=== PATIENT | female | born 1970 | race Caucasian/White ===

== ENCOUNTER 2018-02-23 14:29 | Outpatient (CLI) | payer OTHER ==
--- NOTE | 2018-02-23 16:27 | RAD ---
CERVICAL SPINE RADIOGRAPHS FOUR VIEWS: Date: 02-23-18 Provided Clinical History: Stiff and painful neck. Comparison: 03-01-14 FINDINGS: There is reversal of the normal cervical lordosis. Cervical alignment appears otherwise normal. Disc space narrowing and endplate degenerative change at C5-6. Intervertebral disc space heights appear ot herwise preserved. Vertebral body heights appear preserved. No prevertebral soft tissue swelling is a pparent. The visualized lung apices appear clear. IMPRESSION: Mid cervical degenerative change. POS: LINH
--- NOTE | 2018-02-23 16:27 | RAD ---
LUMBAR SPINE RADIOGRAPHS 3 VIEWS: DATE: 02/23/2018. PROVIDED CLINICAL HISTORY: Mid to low back pain. FINDINGS: No comparisons. Five [id number] lumbar-type vertebral bodies are present. Lumbar alignment swati ears normal. Disk space narrowing and end plate degenerative change above the lumbosacral junction. Intervertebral disk space heights appear otherwise preserved. IUD overlies the pelvis. Calcificati ons overlie the expected location of the left kidney. IMPRESSION: 1. Degenerative change at the lumbosacral junction. 2. Probable left nephrolithiasis. POS: LINH
== END 2018-02-23 14:30 | disposition home or self-care (01) ==
LOC: SCSRAD 14:29
PROVIDERS: ATTEND Family Medicine
DX: M54.5 Low back pain (principal); M54.2 Cervicalgia; V89.2XXA Person injured in unspecified motor-vehicle accident, traffic, initial encounter; M47.897 Other spondylosis, lumbosacral region; M47.892 Other spondylosis, cervical region
CPT/HCPCS: 72040; 72100

== ENCOUNTER 2018-05-31 08:30 | Outpatient (CLI) | payer OTHER ==
--- NOTE | 2018-05-31 17:48 | MMO ---
BILATERAL DIGITAL SCREENING MAMMOGRAM: Date: 05/31/18 HISTORY: Patient with history of biopsy 5 years ago. FINDINGS: Bilateral craniocaudal and oblique mediolateral digital screening mammograms obtained. Images were also performed using computer-aided detection. Images demonstrate surgical clips seen in the upper outer quadrant of the left breast. No newly devel oped masses or lesions seen. Mammographic appearance is stable with no definite evidence of pathology noted. IMPRESSION: BIRADS 1: Negative exam POS: LINH
== END 2018-05-31 08:31 | disposition home or self-care (01) ==
LOC: SCSMAMMO 08:30
PROVIDERS: ATTEND Obstetrics & Gynecology
DX: Z12.31 Encounter for screening mammogram for malignant neoplasm of breast (principal)
CPT/HCPCS: 77067

== ENCOUNTER 2019-09-09 15:16 | Outpatient (CLI) | payer OTHER ==
[2019-09-09 17:45] LABS: Hemoglobin 13.6 g/dL (12.0-16.0); Mean Corpuscular HGB CONC 32.6 g/dL (32.0-36.0); Mean Corpuscular Hemoglobin 29.7 pg (27.0-31.0); Mean Corpuscular Volume 91.1 fL (78.0-98.0); Mean Platelet Volume 7.2 fL (7.4-10.4); Platelet Count 331 thou/uL (130-400); RBC Distribution Width 12.2 % (11.5-14.5); Red Blood Cell (RBC) Count 4.58 mill/uL (4.20-5.40); White Blood Cell (WBC) Count 8.2 thou/uL (4.8-10.8)
[2019-09-09 17:52] LABS: INR-International Normal Ratio 0.9; PTT 30.9 SEC (22.9-36.1); Prothrombin Time 12.2 SEC (12.0-14.7)
[2019-09-09 18:01] LABS: Anion Gap 13 mmol/L (10-20); BUN (Urea Nitrogen) 14 mg/dL (7.0-18.7); Calc. Creatinine Clearance 0 mL/min (70-130); Calcium 9.4 mg/dL (7.8-10.44); Carbon Dioxide 22 mmol/L (22-29); Chloride 104 mmol/L (98-107); Estimated GFR-MDRD 75; Glucose 83 mg/dL (70-105); Potassium 3.7 mmol/L (3.5-5.1); Sodium 135 mmol/L (136-145)
[2019-09-10 13:14] LABS: SARS-CoV-2 MS2 Positive; SARS-CoV-2 N Gene Negative; SARS-CoV-2 S Gene Negative; SARS-CoV-2 orf1ab Negative
== END 2019-09-09 15:17 | disposition home or self-care (01) ==
LOC: LABBT 15:16
PROVIDERS: ATTEND Urology
DX: Z01.812 Encounter for preprocedural laboratory examination (principal); Z11.59 Encounter for screening for other viral diseases; N20.1 Calculus of ureter
CPT/HCPCS: 80048; 81001; 85027; 85610; 85730; 87086; 87635; U0003

== ENCOUNTER 2020-07-10 15:32 | Outpatient (CLI) | payer BC ==
--- NOTE | 2020-07-10 16:14 | RAD ---
EXAM: Abdomen one view: HISTORY: Renal calculus, left ureteral calculus COMPARISON: 05/09/2020 FINDINGS: No evidence for large or small bowel obstruction. No free intraperitoneal air or extraluminal gas. Stable bilateral renal calculi. Stable bilateral renal pelvic phleboliths. IUD in place. No evidence for obstructing ureteral calculus. IMPRESSION: Bilateral renal calculi.
== END 2020-07-10 15:33 | disposition home or self-care (01) ==
LOC: BICRAD 15:32
PROVIDERS: ATTEND Urology
DX: N20.2 Calculus of kidney with calculus of ureter (principal); R35.0 Frequency of micturition
CPT/HCPCS: 74018

== ENCOUNTER 2021-02-13 14:28 | Outpatient (CLI) | payer BC | END 2021-02-13 14:29 | disposition home or self-care (01) | LOC: SCSRAD 14:28 | PROVIDERS: ATTEND Family Medicine | DX: M25.552 Pain in left hip (principal) ==

== ENCOUNTER 2023-07-03 08:00 | Outpatient (CLI) | payer OTHER | END 2023-07-03 08:01 | disposition home or self-care (01) | LOC: BICMAMMO 08:00 | PROVIDERS: ATTEND Obstetrics & Gynecology | DX: N64.4 Mastodynia (principal) | CPT/HCPCS: 77066; G0279 ==